=== PATIENT | male | born 1985 | race Caucasian/White ===

== ENCOUNTER 2021-12-21 07:27 | Outpatient (CLI) | payer BC | END 2021-12-21 07:28 | disposition home or self-care (01) | LOC: LABBT 07:27 | PROVIDERS: ATTEND Student in an Organized Health Care Education/Training Program | DX: J34.2 Deviated nasal septum (principal); J34.89 Other specified disorders of nose and nasal sinuses; J32.9 Chronic sinusitis, unspecified; J30.9 Allergic rhinitis, unspecified; R09.81 Nasal congestion; J34.3 Hypertrophy of nasal turbinates; Z20.822 Contact with and (suspected) exposure to COVID-19 | CPT/HCPCS: U0003; U0005 ==

== ENCOUNTER 2021-12-26 12:29 | Day surgery (SDC) | payer BC ==
[2021-12-25 09:44] VITALS: BMI 32.3
[2021-12-26] MEDS ORDERED: Oxymetazoline HCl 0.05% (30 ML BOT) ONE ×2 (13:36→15:25)
[2021-12-26] MEDS ORDERED: Lidocaine 1% w/Epinephrine 1:100K 20 ML VIAL ONE (15:25)
[2021-12-26] MEDS ORDERED: Bacitracin Zinc Ointment 30 gm TUBE ONE (15:25)
[2021-12-26] MEDS ORDERED: fentaNYL Citrate/PF 100 MCG/2 ML SYRINGE ONE (15:29)
[2021-12-26] MEDS ORDERED: Rocuronium Bromide 10 MG/ML (10ML VIAL) ONE (15:38)
[2021-12-26] MEDS ORDERED: PHENYLEPHRINE-NS 100 MCG/ML 10 ML SYRINGE ONE (15:38)
[2021-12-26] MEDS ORDERED: Dexamethasone 20 MG/5 ML VIAL ONE (15:38)
[2021-12-26] MEDS ORDERED: ePHEDrine 50 MG/ML VIAL ONE (15:38)
[2021-12-26] MEDS ORDERED: PROPOFOL 200 MG/20 ML VIAL ONE (15:38)
[2021-12-26] MEDS ORDERED: Lidocaine 1% PF 5 ML VIAL ONE (15:38)
[2021-12-26] MEDS ORDERED: Ondansetron PF 4 MG/2 ML Vial ONE (15:38)
[2021-12-26] MEDS ORDERED: EPINEPHrine 1 MG/ML AMP ONE (15:47)
[2021-12-26] MEDS ORDERED: Triamcinolone 40 MG/ML VIAL ONE (19:15)
[2021-12-26] MEDS ORDERED: Fentanyl 100 MCG/2 ML VIAL ONE (20:09)
== END 2021-12-26 21:10 | disposition home or self-care (01) ==
LOC: SDC 12:29
PROVIDERS: ATTEND Student in an Organized Health Care Education/Training Program
PROC: 09BL8ZZ Excision of Nasal Turbinate, Via Natural or Artificial Opening Endoscopic (ICD-10-PCS; principal; 2021-12-26)
PROC: 8E09XBZ Computer Assisted Procedure of Head and Neck Region (ICD-10-PCS; principal; 2021-12-26)
PROC: 099R8ZZ Drainage of Left Maxillary Sinus, Via Natural or Artificial Opening Endoscopic (ICD-10-PCS; principal; 2021-12-26)
PROC: 09SM4ZZ Reposition Nasal Septum, Percutaneous Endoscopic Approach (ICD-10-PCS; principal; 2021-12-26)
PROC: 09BS8ZZ Excision of Right Frontal Sinus, Via Natural or Artificial Opening Endoscopic (ICD-10-PCS; principal; 2021-12-26)
PROC: 099Q8ZZ Drainage of Right Maxillary Sinus, Via Natural or Artificial Opening Endoscopic (ICD-10-PCS; principal; 2021-12-26)
PROC: 09BT8ZZ Excision of Left Frontal Sinus, Via Natural or Artificial Opening Endoscopic (ICD-10-PCS; principal; 2021-12-26)
PROC: 0NU Head and Facial Bones, Supplement (ICD-10-PCS; principal; 2021-12-26)
DX: J34.89 Other specified disorders of nose and nasal sinuses (principal); J32.9 Chronic sinusitis, unspecified; J34.2 Deviated nasal septum; J34.3 Hypertrophy of nasal turbinates; J30.9 Allergic rhinitis, unspecified; Z79.899 Other long term (current) drug therapy
CPT/HCPCS: J0171; J1100; J2405; J2704; J3010; J3301; J3490